=== PATIENT | female | born 2005 | race Caucasian/White ===

== ENCOUNTER 2025-01-13 20:56 | Emergency (ER) | payer MEDICAID, OTHER ==
[~2025-01-13] VITALS: Ht 162.6 cm; Wt 127.0 kg
[2025-01-13 21:07] VITALS: TEMP 36.7; O2SAT 100
[2025-01-13 23:16] VITALS: TEMP 98
[2025-01-13] MEDS: ACETAMINOPHEN 500MG TABLET PO ONE (23:16)
[2025-01-14] MEDS ORDERED: NAPR-1176 MT (00:12)
[2025-01-14] MEDS ORDERED: LIDO700A15 TP (00:12)
[2025-01-14 00:47] VITALS: BP 110/77; PULSE 79; RESP 16; O2SAT 100
== END 2025-01-14 00:57 | disposition home or self-care (01) ==
LOC: ER 20:56
DX: S80.02XA Contusion of left knee, initial encounter (principal); S80.01XA Contusion of right knee, initial encounter; M25.562 Pain in left knee; Z79.1 Long term (current) use of non-steroidal anti-inflammatories (NSAID); Z88.1 Allergy status to other antibiotic agents; W18.39XA Other fall on same level, initial encounter; Y93.89 Activity, other specified; Y92.89 Other specified places as the place of occurrence of the external cause; Y99.8 Other external cause status
CPT/HCPCS: 73562; 99283

== ENCOUNTER 2025-03-18 10:27 | Emergency (ER) | payer MEDICAID ==
[~2025-03-18] VITALS: Ht 162.6 cm; Wt 127.0 kg
[~2025-03-18 10:27] MED LIST: LIDO-53 TP; NAPR-1176 MT
[2025-03-18 10:36] VITALS: O2SAT 99
[2025-03-18] MEDS ORDERED: IBUP-2029 MT (11:41)
[2025-03-18] MEDS ORDERED: METH-653 MT (11:41)
[2025-03-18 11:56] VITALS: BP 128/80; PULSE 90; RESP 18; TEMP 36.9; O2SAT 99
== END 2025-03-18 11:59 | disposition home or self-care (01) ==
LOC: ER 10:27
DX: S33.5XXA Sprain of ligaments of lumbar spine, initial encounter (principal); E11.9 Type 2 diabetes mellitus without complications; Z88.1 Allergy status to other antibiotic agents; X58.XXXA Exposure to other specified factors, initial encounter; Y93.01 Activity, walking, marching and hiking; Y92.89 Other specified places as the place of occurrence of the external cause; Y99.8 Other external cause status
CPT/HCPCS: 99283